=== PATIENT | male | born 1975 | race African-American/Black ===

== ENCOUNTER 2022-01-08 17:40 | Emergency (ER) | payer OTHER ==
[2022-01-08 18:22] VITALS: RESP 18; TEMP 99
[2022-01-08] MEDS ORDERED: SODIUM CHLORIDE 0.9% 1,000 ML IV STA (18:33)
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
[2022-01-08 18:54] LABS: Basophils # (A) 0.1 k/uL (0-0.2); Basophils % (A) 2 %; Eosinophils # (A) 0.1 k/uL (0-0.7); Eosinophils % (A) 2 %; HCT 44.3 % (39.0-53.0); HGB 14.6 gm/dL (13.0-17.5); Lymphocytes # (A) 1.2 k/uL (1.0-4.8); Lymphocytes % (A) 23 %; MCH 31.7 pg (25.0-35.0); MCHC 32.9 g/dL (31.0-37.0); MCV 96.4 fL (80.0-100.0); Monocytes # (A) 0.4 k/uL (0-1.0); Monocytes % (A) 8 %; Neutrophils # (A) 3.2 k/uL (1.3-7.7); Neutrophils % (A) 63 %; Platelet Count 236 k/uL (150-450); RDW 13.1 % (11.5-15.5); WBC 5.1 k/uL (3.8-10.6)
[2022-01-08 19:02] LABS: Albumin 4.8 g/dL (3.5-5.0); Calcium 10.2 mg/dL (8.4-10.2); Potassium 3.8 mmol/L (3.5-5.1); Total Bilirubin 0.6 mg/dL (0.2-1.3); Total Protein 7.6 g/dL (6.3-8.2)
[2022-01-08 19:11] LABS: Prothrombin Time 11.1 sec (9.0-12.0)
--- NOTE | 2022-01-08 19:20 | XR ---
EXAMINATION TYPE: XR chest 1V portable DATE OF EXAM: 01/08/2022 6:55 PM COMPARISON: None TECHNIQUE: XR chest 1V portable Frontal view of the chest. CLINICAL INDICATION:Male, 46 years old with history of abdominal pain; FINDINGS: Lungs/Pleura: There is no evidence of pleural effusion, focal consolidation, or pneumothorax. Pulmonary vascularity: Unremarkable. Heart/mediastinum: Cardiomediastinal silhouette is unremarkable. Musculoskeletal: No acute osseous pathology. IMPRESSION: No acute cardiopulmonary disease/process.
[2022-01-08 19:23] LABS: Partial Thromboplastin Time 21.5 sec (22.0-30.0)
[2022-01-08 21:00] VITALS: PULSE 70
[2022-01-08 21:10] LABS: Appearance,Urine Clear (Clear); Bilirubin,Urine 1+ (Negative); Blood,Urine Negative (Negative); Color,Urine Yellow; Glucose,Urine (UA) Negative (Negative); Ketones,Urine 1+ (Negative); Leukocyte Esterase,Urine Trace (Negative); Mucus,Urine Many /hpf; Nitrite,Urine Negative (Negative); PH, Urine 5.5 (5.0-8.0); Protein,Urine 1+ (Negative); RBC,Urine 1 /hpf (0-5); Specific Gravity,Urine 1.036 (1.001-1.035); Squamous Epithelial Cell,Urine 2 /hpf (0-4); WBC,Urine 3 /hpf (0-5)
--- NOTE | 2022-01-08 21:34 | CT ---
EXAMINATION TYPE: CT abdomen pelvis w con CT DLP: 788.2 mGycm, Automated exposure control for dose reduction was used. DATE OF EXAM: 01/08/2022 8:02 PM COMPARISON: None. CLINICAL INDICATION:Male, 46 years old with history of Left-sided abdominal pain; Left-sided abdomina l pain, abnormal weight loss TECHNIQUE: Standard CT of the abdomen and pelvis following the administration of 100 cc of Isovue 3 00 IV contrast material. Coronal and sagittal reformats were performed. FINDINGS: LOWER CHEST: Unremarkable ABDOMEN LIVER: Diffusely hypoattenuating parenchyma. GALLBLADDER AND BILE DUCTS: Unremarkable. PANCREAS: Unremarkable. SPLEEN: Unremarkable. ADRENAL GLANDS: Unremarkable. KIDNEYS AND URETERS: No evidence of hydronephrosis or renal calculus. The ureters are unremarkable. PELVIS BLADDER: Unremarkable REPRODUCTIVE: Unremarkable. ABDOMEN & PELVIS STOMACH AND BOWEL: No evidence of bowel obstruction. PERITONEUM: No evidence of pneumoperitoneum or free fluid. VASCULATURE: No evidence of aortic aneurysm. MUSCULOSKELETAL: No acute osseous abnormalities LYMPH NODES: No gross evidence for lymphadenopathy. SOFT TISSUE/ABDOMINAL WALL: Unremarkable IMPRESSION: 1. Paucity of intra-abdominal fat slightly limits evaluation. There is no evidence of hydronephrosis or acute left-sided abdominal process to explain the patient's pain. 2. Hepatic steatosis.
[2022-01-08] MEDS ORDERED: diphenhydrAMINE 50 MG/ML 1 ML VIAL IVP STA (21:43)
[2022-01-08] MEDS ORDERED: METOCLOPRAMIDE 5 MG/ML 2 ML VIAL IVP STA (21:43)
[2022-01-08 22:49] VITALS: BP 111/64
== END 2022-01-08 22:54 | disposition home or self-care (01) ==
LOC: EC 17:40
DX: K76.0 Fatty (change of) liver, not elsewhere classified (principal); E86.0 Dehydration; R68.81 Early satiety; F17.200 Nicotine dependence, unspecified, uncomplicated; F12.90 Cannabis use, unspecified, uncomplicated; F14.90 Cocaine use, unspecified, uncomplicated
CPT/HCPCS: 36415; 80053; 82150; 83605; 83690; 85025; 85610; 85730; 81001; 71045; 74177; 99284; 96374; 96375; 96361; J1200; J2765; Q9967

== ENCOUNTER → 2022-02-10 | Day surgery (SDC) | payer OTHER ==
[2022-02-09 10:34] VITALS: BMI 22.5
[~2022-02-10] MED LIST: GLYCOPYRROLATE 0.2 MG/ML 2 ML VIAL ONE; LACTATED RINGERS 1,000 ML IV SCH; LIDOCAINE 1% (10MG/ML) FOR IV START INTRADERMA ONE; LIDOCAINE 1% (10MG/ML) FOR IV START INTRADERMA PRN; LIDOCAINE 2% INJ 20 MG/ML (2 ML VIAL) ONE; PROPOFOL 10 MG/ML 20 ML VIAL IV ONE
[2022-02-10 11:01] VITALS: RESP 16; TEMP 97.6
--- NOTE | 2022-02-10 11:53 | P.PCN ---
Date of Procedure: 02/10/22 Procedure(s) Performed: PREOPERATIVE DIAGNOSIS: Epigastric pain, rectal bleeding, hemorrhoids POSTOPERATIVE DIAGNOSIS: Minimal gastritis, internal hemorrhoids PROCEDURE: 1. EGD with biopsy 2. Colonoscopy with anoscopy and hemorrhoidal banding ANESTHESIA: MAC SURGEON: Jatidner Fonseca M.D. SPECIMENS: Antrum ENDOSCOPIC PROCEDURE: The patient was on the endoscopy table in the left decubitus position. The Olympus gastroscope was inserted into the oropharynx and passed under direct visualization to the region of the third portion of the duodenum. From that point the scope was slowly withdrawn inspecting all surfaces carefully. There were no neoplastic inflammatory or polypoid lesions throughout the duodenum. The pylorus was widely patent. The stomach was carefully inspected. There was minimal gastritis present. A biopsy of the antrum took place to rule out H. pylori. Retroflexion revealed a normal hiatus. The esophagus was then carefully examined. There were no neoplastic inflammatory or polypoid lesions throughout the visualized esophagus. The patient was kept on the endoscopy table in the left decubitus position. The Olympus colonoscope was inserted into the anus and passed under direct visualization to the base of the cecum. The appendiceal orifice was visualized. From that point the scope was slowly withdrawn inspecting all surfaces carefully. There were no neoplastic inflammatory or polypoid lesions throughout the cecum, ascending, transverse, descending, sigmoid and rectum. There was no visible diverticulosis noted. Retroflexion at the anus revealed prominent internal hemorrhoids. Digital rectal examination was normal. Anoscopy was also utilized. The patient was noted to have prominent internal hemorrhoids. The largest seemed to be in the left lateral location. Through the anoscope a banding took place of the largest hemorrhoid which was in the left lateral location. The patient was taken to the recovery room in stable condition per anesthesia guidelines. RECOMMENDATIONS: Resume diet. Increase fiber. Patient may benefit from further hemorrhoidal banding if symptoms of prolapse persist.
[2022-02-10 12:32] VITALS: BP 128/87; PULSE 52
== END ==
LOC: ORWHC2ENDO 10:18
PROVIDERS: ATTEND Surgery
DX: K29.50 Unspecified chronic gastritis without bleeding (principal); K64.8 Other hemorrhoids; F17.200 Nicotine dependence, unspecified, uncomplicated
CPT/HCPCS: 88305; 43239; 45398; J2704; J2001; 45378

== ENCOUNTER 2022-05-12 10:43 | Day surgery (SDC) | payer OTHER ==
[2022-05-08 12:40] VITALS: BMI 25.4
[~2022-05-12 10:43] MED LIST changes: -GLYCOPYRROLATE 0.2 MG/ML 2 ML VIAL ONE; -LIDOCAINE 1% (10MG/ML) FOR IV START INTRADERMA ONE; -LIDOCAINE 2% INJ 20 MG/ML (2 ML VIAL) ONE; -PROPOFOL 10 MG/ML 20 ML VIAL IV ONE
[2022-05-12 11:18] VITALS: RESP 16; TEMP 97.1
[2022-05-12] MEDS ORDERED: PROPOFOL 10 MG/ML 20 ML VIAL IV ONE (11:38)
--- NOTE | 2022-05-12 11:59 | P.PCN ---
Date of Procedure: 05/12/22 Procedure(s) Performed: PREOPERATIVE DIAGNOSIS: Rectal bleeding, prolapsed hemorrhoids POSTOPERATIVE DIAGNOSIS: Internal hemorrhoids left lateral and right anterior PROCEDURE: Flex sigmoidoscopy, anoscopy with hemorrhoidal banding ANESTHESIA: MAC SURGEON: Jatinder Fonseca M.D. SPECIMENS: None ENDOSCOPIC PROCEDURE: The patient was placed on the endoscopy table in the left decubitus position. The Olympus flexible sigmoidoscope was inserted into the anus and passed under direct visualization to the rectosigmoid junction. No abnormalities were present in the rectum. At the anus there was noted be prominent internal hemorrhoids in the left lateral and the right anterior position. Using anoscope these were confirmed. Through the anoscope the right anterior in the left lateral internal hemorrhoids were banded using rubber band ligation technique. Small amount of bleeding was seen. The patient was taken to the recovery room in stable condition per anesthesia guidelines. RECOMMENDATIONS: Increase fiber. Follow-up office 1 month.
[2022-05-12] MEDS ORDERED: ACETAMINOPHEN TAB 500 MG TAB ONE (12:38)
[2022-05-12] MEDS ORDERED: KETOROLAC 15 MG/ML 1 ML VIAL ONE (12:38)
[2022-05-12] MEDS ORDERED: KETOROLAC 15 MG/ML 1 ML VIAL IVP ONE (12:40)
[2022-05-12] MEDS ORDERED: ACETAMINOPHEN TAB 500 MG TAB PO ONE (12:40)
[2022-05-12 13:15] VITALS: BP 137/75; PULSE 68
== END 2022-05-12 13:15 | disposition home or self-care (01) ==
LOC: ORWHC2ENDO 10:43
PROVIDERS: ATTEND Surgery
DX: K64.8 Other hemorrhoids (principal); K62.5 Hemorrhage of anus and rectum; F17.200 Nicotine dependence, unspecified, uncomplicated
CPT/HCPCS: 45330; 46221; J1885; J2704